=== PATIENT | female | born 1980 | race Two or more races ===

== ENCOUNTER → 2019-02-14 | Outpatient (REF) | payer OTHER ==
[~2019-02-14] MED LIST: BRIM1OPD; BUPR300T34 PO; FOLI1TAB11 PO; IRON27TA2 PO; MULTCAP PO; TRAZ-252 PO; VITA100018 PO; VITA100066 PO; VITA500T PO; [UNRECOGNIZED DRUG - CODE]
== END ==
LOC: M LAB LCGH 11:35
PROVIDERS: ATTEND Obstetrics & Gynecology
DX: Z12.4 Encounter for screening for malignant neoplasm of cervix (principal)

== ENCOUNTER → 2019-03-03 | Outpatient (REF) | payer MEDICAID, OTHER ==
[~2019-03-03] MED LIST changes: +TRAZ-160 PO; -TRAZ-252 PO
== END ==
LOC: M LAB LCGH 12:59
DX: Z12.4 Encounter for screening for malignant neoplasm of cervix (principal)

== ENCOUNTER → 2019-09-13 | Outpatient (REF) ==
[~2019-09-13] MED LIST changes: +LOVE1INJ SC; -TRAZ-160 PO; +TRAZ-252 PO
== END ==
LOC: M LAB LCGH 13:37
PROVIDERS: ATTEND Obstetrics & Gynecology
DX: Z37.0 Single live birth (principal)

== ENCOUNTER → 2019-10-17 | Outpatient (REF) | payer OTHER | LOC: M LAB LCGH 12:11 | PROVIDERS: ATTEND Obstetrics & Gynecology | DX: Z12.4 Encounter for screening for malignant neoplasm of cervix (principal); R87.615 Unsatisfactory cytologic smear of cervix ==

== ENCOUNTER → 2023-02-13 | Outpatient (REF) | payer OTHER ==
[~2023-02-13] MED LIST changes: -BUPR300T34 PO; +BUPR300T92 PO; +MULT-90 PO; +SERT-138 PO; +VITA-243 PO; -VITA500T PO; +ZOLO100T PO
== END ==
LOC: M PLALAB 07:43
PROVIDERS: ATTEND Advanced Practice Midwife
DX: Z12.4 Encounter for screening for malignant neoplasm of cervix (principal)
CPT/HCPCS: 87624; G0123

== ENCOUNTER → 2023-02-13 | Outpatient (CLI) | payer OTHER | LOC: M WHC 13:53 | PROVIDERS: ATTEND Advanced Practice Midwife | DX: Z12.31 Encounter for screening mammogram for malignant neoplasm of breast (principal) ==

== ENCOUNTER → 2023-03-20 | Outpatient (CLI) | payer OTHER | LOC: M WHC 09:50 | PROVIDERS: ATTEND Advanced Practice Midwife | DX: R10.2 Pelvic and perineal pain (principal); N94.10 Unspecified dyspareunia ==

== ENCOUNTER → 2023-04-02 | Outpatient (REF) | payer OTHER | LOC: M PLALAB 09:57 | PROVIDERS: ATTEND Advanced Practice Midwife | DX: R10.2 Pelvic and perineal pain (principal); N94.10 Unspecified dyspareunia ==

== ENCOUNTER → 2024-06-09 | Outpatient (REF) | payer OTHER ==
[~2024-06-09] MED LIST changes: +AMIT50TA PO; +BUPR-597 PO; -BUPR300T92 PO; +NEUR300C PO; +VITA100093 PO; +XALA0.007
== END ==
LOC: M SFHCWAGY 14:47
PROVIDERS: ATTEND Obstetrics & Gynecology
DX: N93.9 Abnormal uterine and vaginal bleeding, unspecified (principal)

== ENCOUNTER → 2024-06-18 | Outpatient (CLI) | payer OTHER | LOC: M WHC 11:00 | PROVIDERS: ATTEND Advanced Practice Midwife | DX: Z12.31 Encounter for screening mammogram for malignant neoplasm of breast (principal) ==

== ENCOUNTER 2024-07-01 06:03 | Observation (INO) | payer OTHER ==
[2024-07-01] VITALS (7 sets, daily range): BP systolic 108–123; BP diastolic 54–77; TEMP 97.3–98.9; O2SAT 96–100
[~2024-07-01] VITALS: Ht 182.9 cm; Wt 135.6 kg
[~2024-07-01 06:03] MED LIST changes: +UNRESOLVED CLARIFICATION ENTRY XX SCH
[2024-07-01 06:29] LABS: HEMATOCRIT 37.8 % (36.0-47.0); HEMOGLOBIN 12.2 g/dl (12.0-15.5); MEAN CORPUSCULAR HEMOGLOBIN 26.9 pg (27.0-33.0); MEAN CORPUSCULAR HGB CONC 32.3 g/dl (32.0-36.5); MEAN CORPUSCULAR VOLUME 83.4 fl (80.0-96.0); PLATELET COUNT, AUTOMATED 330 10^3/uL (150-450); RED BLOOD COUNT 4.53 10^6/uL (4.00-5.40); WHITE BLOOD COUNT 7.3 10^3/uL (4.0-10.0)
[2024-07-01] MEDS: LR 1,000 ML IV SCH ×3 (06:47→09:40)
[2024-07-01] MEDS: ceFAZolin SOD 2 GM in IV 1 EA IV ONE (07:20)
[2024-07-01] MEDS: ceFAZolin SOD 1 GM in D5W MINI-BAG PLUS 50 ML IV ONE (07:20)
[2024-07-01] MEDS ORDERED: fentaNYL 250 MCG/5 ML INJECTION As Ordered ONE (08:15)
[2024-07-01] MEDS ORDERED: MIDAZOLAM INJ 2MG/2ML VIAL As Ordered ONE (08:15)
[2024-07-01] MEDS ORDERED: ACETAMINOPHEN 1000MG 100ML IV BAG As Ordered ONE (08:15)
[2024-07-01] MEDS ORDERED: ROCURONIUM BROMIDE 50MG/5ML VIAL As Ordered ONE (08:15)
[2024-07-01] MEDS ORDERED: ONDANSETRON 4MG 2ML VIAL As Ordered ONE (08:15)
[2024-07-01] MEDS ORDERED: METOCLOPRAMIDE INJ 10MG/2ML VIAL As Ordered ONE (08:15)
[2024-07-01] MEDS ORDERED: propofoL 200 MG/20 ML VIAL As Ordered ONE (08:15)
[2024-07-01] MEDS ORDERED: dexmedeTOMIDine (4MCG/ML)200MCG/50ML BTL (PRECEDEX) As Ordered ONE (08:15)
[2024-07-01] MEDS ORDERED: HYDROmorphone HCL 2MG/ML 1ML VIAL As Ordered ONE (08:15)
[2024-07-01] MEDS ORDERED: SUGAMMADEX SODIUM 500 MG/5 ML VIAL (BRIDION) As Ordered ONE (08:15)
[2024-07-01] MEDS ORDERED: LIDOCAINE 2% 100MG/5ML SDV (FOR ANES.) As Ordered ONE (08:15)
[2024-07-01] MEDS ORDERED: KETOROLAC 60MG 2ML VIAL As Ordered ONE (08:37)
[2024-07-01] MEDS: METHYLENE BLUE 0.5% (5MG/ML) 10 ML AMP (PROVAYBLUE) As Ordered ONE (08:50)
[2024-07-01] MEDS ORDERED: ePHEDrine SULFATE 25 MG/5 ML(5MG/ML) SYRINGE As Ordered ONE (09:06)
[2024-07-01] MEDS ORDERED: ALBUTEROL 6.7GM INHALER **FOR ANES. CART/OMNICELL ONLY As Ordered ONE (09:26)
[2024-07-01] MEDS ORDERED: PERCOCET 5MG/325MG TAB PO PRN (09:35)
[2024-07-01] MEDS ORDERED: ONDANSETRON 4MG 2ML VIAL IV PRN ×2 (09:35→09:40)
[2024-07-01] MEDS ORDERED: fentaNYL 100 MCG/2 ML INJECTION IV PRN (09:40)
[2024-07-01] MEDS ORDERED: HYDROMORPHONE HCL 0.5 MG/ 0.5 ML SYRINGE IV PRN (09:40)
[2024-07-01] MEDS ORDERED: PERCOCET PO (09:46)
[2024-07-01] MEDS ORDERED: COLA100C5 PO (09:46)
[2024-07-01] MEDS: oxyCODONE 5MG TAB PO PRN (10:19)
[2024-07-01] MEDS: PERCOCET 5MG/325MG TAB PO PRN (11:44)
[2024-07-01] MEDS: KETOROLAC 30 MG/ML 1ML VIAL IV SCH (15:22)
[2024-07-01] MEDS: MORPHINE 4 MG/ML 1ML VIAL IV PRN (16:03)
[2024-07-01] MEDS: DOCUSATE SODIUM 100MG CAPSULE PO SCH (21:09)
[2024-07-02] VITALS: BP 111/59; TEMP 98; O2SAT 97
[2024-07-02 04:00] VITALS: BP 115/59; TEMP 97.7; O2SAT 99
[2024-07-02 07:48] VITALS: BP 116/64; TEMP 98.6; O2SAT 99
== END 2024-07-02 11:50 | disposition home or self-care (01) ==
LOC: M SDC 06:03 → M OR 06:04 → M ED INP 09:34 → M PED 10:53 → M SDC 07-02 11:50
PROVIDERS: ADMIT Obstetrics & Gynecology; ATTEND Obstetrics & Gynecology
DX: N93.9 Abnormal uterine and vaginal bleeding, unspecified (principal); R10.2 Pelvic and perineal pain; K58.8 Other irritable bowel syndrome; F41.9 Anxiety disorder, unspecified; F32.A Depression, unspecified; G43.909 Migraine, unspecified, not intractable, without status migrainosus; E28.2 Polycystic ovarian syndrome; Z98.84 Bariatric surgery status; Z88.0 Allergy status to penicillin; Z88.8 Allergy status to other drugs, medicaments and biological substances; Z79.899 Other long term (current) drug therapy
CPT/HCPCS: 36415; 58570; 81025; 85027; 86850; 86900; 86901; 88307; 96374; 96375; 96376; J0131; J0665; J0690; J1100; J1170; J1885; J2250; J2405; J2765; J3010; Q9968; S2900